=== PATIENT | female | born 1985 | race American Indian/Alaskan Native ===

== ENCOUNTER 2024-08-10 18:20 | Emergency (ER) | payer MEDICAID ==
[~2024-08-10] VITALS: Ht 165.1 cm; Wt 90.0 kg
[2024-08-10 18:43] VITALS: BP 144/88; PULSE 69; RESP 15; O2SAT 100
[2024-08-10 18:59] LABS: BASOPHILS % (AUTO) 0.4 % (0-1); EOSINOPHILS # (AUTO) 0.1 X10'3 (0-0.9); HEMATOCRIT 40.1 % (35.0-45.0); HEMOGLOBIN 13.8 g/dl (12.0-16.0); LYMPHOCYTES # (AUTO) 2.5 X10'3 (1.1-4.8); LYMPHOCYTES % (AUTO) 27.5 % (21-51); MEAN CORPUSCULAR HEMOGLOBIN 28.8 PG (27.0-31.0); MEAN CORPUSCULAR HGB CONC 34.5 g/dL (33.0-36.5); MEAN CORPUSCULAR VOLUME 83.4 FL (78-98); MEAN PLATELET VOLUME 8.8 FL (7.4-10.4); MONOCYTES # (AUTO) 0.4 X10'3 (0-0.9); MONOCYTES % (AUTO) 4.2 % (2-12); NEUTROPHILS # (AUTO) 5.9 X10'3 (1.8-7.7); NEUTROPHILS % (AUTO) 66.9 % (42-75); PLATELET COUNT 224 X10'3 (140-440); RED BLOOD COUNT 4.81 X10'6 (4.20-5.60); RED CELL DISTRIBUTION WIDTH 14.7 % (11.5-14.5); WHITE BLOOD COUNT 8.9 X10'3 (4.5-11.0)
[2024-08-10 19:18] LABS: ALANINE AMINOTRANSFERASE 61 U/L (12-78); ALBUMIN 3.7 G/DL (3.4-5.0); ALBUMIN/GLOBULIN RATIO 0.9 (1.1-1.5); ALKALINE PHOSPHATASE 87 IU/L (46-116); ANION GAP 7 (8-16); ASPARTATE AMINO TRANSFERASE 23 U/L (10-37); BILIRUBIN,TOTAL 0.5 MG/DL (0.1-1.0); BLOOD UREA NITROGEN 7 MG/DL (7-18); CHLORIDE 106 MMOL/L (99-107); GLUCOSE 99 MG/DL (70-104); POTASSIUM 3.6 MMOL/L (3.5-5.1); SODIUM 141 MMOL/L (135-145); TOTAL CARBON DIOXIDE 27.7 MMOL/L (24-32); eCRCL 97 ML/MIN; eGFR > 90 ML/MIN
[2024-08-10 19:28] LABS: PRO BRAIN NATRIURETIC PEPTIDE 41 PG/ML (0-125)
[2024-08-10 20:01] LABS: FREE T4 (FREE THYROXINE) 0.85 NG/DL (0.73-1.40); THYROID STIMULATING HORMONE 3.45 ulU/ml (0.34-4.50)
[2024-08-10 21:29] LABS: BILIRUBIN,URINE NEGATIVE (Neg); CLARITY,URINE SLIGHTLY CLOUDY (Clear); COLOR,URINE YELLOW (Yellow); GLUCOSE, URINE NEGATIVE (Neg); KETONES,URINE NEGATIVE (Neg); LEUKOCYTE ESTERASE ,URINE LARGE (Neg); NITRITES, URINE NEGATIVE (Neg); OCCULT BLOOD,URINE NEGATIVE (Neg); PROTEIN,URINE NEGATIVE (Neg); UROBILINOGEN,URINE 0.2 E.U/dL (0.2-1.0)
[2024-08-10 21:32] VITALS: TEMP 96.8
[2024-08-10 21:40] LABS: UA COLLECTION TYPE CLN CATCH MIDSTREAM
[2024-08-10 21:42] LABS: BACTERIA,URINE 2+ /HPF (Neg); RBC,URINE NONE SEEN /HPF (0-2); SQUAMOUS EPITHELIAL CELL,UR MODERATE /LPF (FEW)
[2024-08-10 21:46] LABS: URINE AMPHETAMINE SCREEN NEGATIVE (Neg); URINE BARBITUATE SCREEN NEGATIVE (Neg); URINE BENZODIAZEPINES SCREEN NEGATIVE (Neg); URINE CANNABINOID SCREEN NEGATIVE (Neg); URINE COCAINE SCREEN NEGATIVE (Neg); URINE METHADONE SCREEN NEGATIVE (Neg); URINE OPIATE SCREEN NEGATIVE (Neg); URINE PHENCYCLIDINE SCREEN NEGATIVE (Neg)
== END 2024-08-10 21:45 | disposition home or self-care (01) ==
LOC: ER 18:21
DX: R07.89 Other chest pain (principal)
CPT/HCPCS: 36415; 71045; 80053; 80305; 81001; 83880; 84439; 84443; 84484; 85025; 87088; 93005; 99285

== ENCOUNTER 2024-12-10 22:20 | Emergency (ER) | payer MEDICAID, OTHER ==
[~2024-12-10] VITALS: Ht 165.1 cm; Wt 103.2 kg
--- NOTE | 2024-12-10 22:44 | Physician Documentation ---
History of Present Illness General Chief Complaint: Back Pain Stated Complaint: FLANK PAIN Time Seen by MD: 22:35 History of Present Illness Initial Comments 39-year-old female presents to the emergency department for evaluation of bilateral lower back pain that began after installing a car seat. Feels that maybe she may have pulled her back. 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 Patient has difficulty walking on toes and heels. No saddle paresthesias, fever or loss of bowel or bladder. No per his to the same. Medication Reconciliation Allergies: Coded Allergies: No Known Allergies (Unverified , 08/10/24) Review of Systems All Other Systems at this time: Reviewed and Negative Constitutional: Denies: fever Musc: Reports: back pain Physical Exam Physical Exam Vital Signs: RN Vital Signs have been reviewed: Yes, Temperature: 98.2, Source: Temporal, Heart Rate: 72, Respiratory Rate: 16, BP: 151/79, Pulse Oximetry: 99, Weight: 103.200 Oxygen Flow Rate: 0 General Appearance: alert, moderate distress Head: normal inspection Face: normal inspection Pupils/EOM/Fundus: PERRLA Respiratory: no respiratory distress Back: other (Bilateral lower paraspinous lumbar tenderness to palpation) Extremities: normal range of motion Neurologic: oriented x4 Motor / Sensory: no motor deficit, no sensory deficit, other (Difficulty walking on toes and heel walking. Reproducible pain with forward flexion) Psychiatric: normal mood/affect Skin: normal color Progress Results/Orders Results/Orders Orders - REGINA JONES Lidocaine 5% Patch (Lidoderm 5% Patch) (12/10/24 22:45) Completed Orders - REGINA JONES Ketorolac Trometh 15mg/Ml Vial (Toradol (12/10/24 22:45) Medications Received in ER Medications (Trade) Dose Ordered Sig/Frida Route PRN Reason Start Time Stop Time Status Last Admin Dose Admin (Toradol injection) 60 mg ONCE ONCE IM 12/10/24 22:45 12/10/24 22:46 DC 12/10/24 22:51 60 MG (Lidoderm 5% Patch) 2 patch ONCE TP 12/10/24 22:45 12/10/24 22:52 2 PATCH Vital Signs 12/10/24 12/10/24 12/10/24 22:23 22:51 23:05 Temp 98.2 Pulse 72 Resp 16 14 11 B/P (MAP) 151/79 Pulse Ox 99 O2 Flow Rate 0 Medical Decision Making Differential Diagnosis Examination history consistent with acute lower lumbar strain without clinical suspicion for cauda equina syndrome, diskitis and epidural abscess. Thin in the emergency department patient received Toradol injection both diagnostic and therapeutic along with Lidoderm patches. She will begin anti-inflammatory, it is spasmodic and topical therapy tomorrow. She was safely discharged from the emergency department grossly neurologically intact without focal neuro deficits. Departure Impression: Primary Impression: Strain of lumbar region Qualified Codes: S39.012A - Strain of muscle, fascia and tendon of lower back, initial encounter Discharge Instructions: Lumbosacral Strain Additional Instructions: Pain in the emergency department he received an injection of Toradol for acute lumbosacral strain. Additionally review applied Lidoderm patches. Please visit your pharmacy tomorrow obtain prescriptions that began as directed. Return to the emergency department for fever increased pain that has not managed by medications. Thank you for visiting [facility]. Departure Forms: Excuse form Work or School Excused From: Work Excuse beginning now through the following date: Dec 13, 2024 Referrals: NO PRIMARY CARE PROVIDER (PCP) Prescriptions Ibuprofen (Ibuprofen) 600 Mg Tablet 1 TAB PO Q6H PRN for Lower back pain, #30 TAB Prov: REGINA JONES 12/10/24 Lidocaine (Lidoderm) 5 % Adh..patch 1 PATCH TOP DAILY for 30 Days, #30 PATCH 0 Refills may wear up to 12 hours Prov: REGINA JONES 12/10/24 Baclofen (Baclofen) 10 Mg Tablet 1 TAB PO Q8H for 30 Days, #90 TAB 0 Refills Prov: REGINA JONES 12/10/24 Education Educated: Patient Educated regarding: diagnosis Signature Scribe Signature: . Attestation: . REGINA JONES Dec 10, 2024 22:44
[2024-12-10] MEDS: ketorolac trometh 15mg/ml vial 15 MG/ML ML IM ONE (22:51)
[2024-12-10] MEDS: LIDOcaine 5% patch TP SCH (22:52)
[2024-12-10] MEDS ORDERED: LIDO700A32 TOP (23:09)
[2024-12-10] MEDS ORDERED: BACL10TA2 PO (23:09)
[2024-12-10] MEDS ORDERED: IBUP-1985 PO (23:10)
[2024-12-10 23:39] VITALS: BP 125/76; PULSE 72; RESP 12; TEMP 98.2; O2SAT 96
== END 2024-12-10 22:37 | disposition home or self-care (01) ==
LOC: ER 22:20
DX: S39.012A Strain of muscle, fascia and tendon of lower back, initial encounter (principal); X58.XXXA Exposure to other specified factors, initial encounter; Y93.89 Activity, other specified; Y92.89 Other specified places as the place of occurrence of the external cause; Y99.8 Other external cause status
CPT/HCPCS: 96372; 99283; J1885